=== PATIENT | male | born 1950 | race Caucasian/White ===

== ENCOUNTER 2022-05-21 09:03 | Outpatient (CLI) | payer MEDICARE ==
[2022-05-21 10:23] LABS: #Eosinphils 0.1 10x3/uL (0.0-0.5); #Monocytes 0.5 10x3/uL (0.0-1.1); #Neutrophils 3.1 10x3/uL (1.5-8.4); %Basophils 0.8 % (0.0-2.0); %Monocytes 9.1 % (0.0-10.0); %Neutrophils 61.9 % (40.0-75.0); Hemoglobin 14.5 g/dL (13.5-17.5); Mean Corpuscular HGB CONC 33.6 g/dL (32.0-36.0); Mean Corpuscular Hemoglobin 32.2 pg (27.0-33.0); Mean Platelet Volume 10.6 fl (7.4-10.4); Platelet Count 166 10x3/uL (150-450); RBC Distribution Width 12.3 % (11.5-14.5); White Blood Cell (WBC) Count 4.9 10x3/uL (3.5-10.5)
[2022-05-21 10:52] LABS: ALT (SGPT) 20 U/L (8-55); AST (SGOT) 28 U/L (5-34); Alkaline Phosphatase 89 U/L (40-110); Anion Gap 12 mmol/L (10-20); BUN (Urea Nitrogen) 7 mg/dL (8.4-25.7); Bilirubin, Total 0.9 mg/dL (0.2-1.2); Calc. Creatinine Clearance 0 mL/min (70-130); Calcium 9.2 mg/dL (7.8-10.44); Carbon Dioxide 27 mmol/L (23-31); Chloride 103 mmol/L (98-107); Estimated GFR 75; Globulin 2.5 g/dL (2.4-3.5); Glucose 98 mg/dL (83-110); Potassium 4.3 mmol/L (3.5-5.1); Protein, Total 6.5 g/dL (5.8-8.1); Sodium 138 mmol/L (136-145)
== END 2022-05-21 09:04 | disposition home or self-care (01) ==
LOC: LABBT 09:03
PROVIDERS: ATTEND Surgery
DX: Z01.818 Encounter for other preprocedural examination (principal); K42.9 Umbilical hernia without obstruction or gangrene; Z20.822 Contact with and (suspected) exposure to COVID-19
CPT/HCPCS: 80053; 85025; 87811; 93005; 93010

== ENCOUNTER 2022-05-24 09:30 | Day surgery (SDC) | payer MEDICARE, OTHER ==
[2022-05-23 11:12] VITALS: BMI 24.4
[2022-05-24] MEDS ORDERED: fentaNYL Citrate/PF 100 MCG/2 ML SYRINGE ONE (10:55)
[2022-05-24] MEDS ORDERED: Bupivacaine/Epinephrine 0.25% 30 ML VIAL ONE (10:57)
[2022-05-24] MEDS ORDERED: Levofloxacin 500 mg/D5W 100 ml Premix Bag ONE (11:01)
[2022-05-24] MEDS ORDERED: Lidocaine 1% PF 5 ML VIAL ONE (11:14)
[2022-05-24] MEDS ORDERED: ePHEDrine 50 MG/ML VIAL ONE (11:14)
[2022-05-24] MEDS ORDERED: Ondansetron PF 4 MG/2 ML Vial ONE (11:14)
[2022-05-24] MEDS ORDERED: Dexamethasone 20 MG/5 ML VIAL ONE (11:14)
[2022-05-24] MEDS ORDERED: PROPOFOL 200 MG/20 ML VIAL ONE (11:14)
== END 2022-05-24 14:25 | disposition home or self-care (01) ==
LOC: SDC 09:30
PROVIDERS: ATTEND Surgery
PROC: 0WUF0JZ Supplement Abdominal Wall with Synthetic Substitute, Open Approach (ICD-10-PCS; principal; 2022-05-24)
DX: K43.9 Ventral hernia without obstruction or gangrene (principal); Z79.82 Long term (current) use of aspirin; Z79.899 Other long term (current) drug therapy; Z88.0 Allergy status to penicillin; Z91.011 Allergy to milk products; Z91.012 Allergy to eggs; Z91.018 Allergy to other foods
CPT/HCPCS: J1956